=== PATIENT | male | born 1980 | race Caucasian/White ===

== ENCOUNTER 2022-01-08 09:57 | Outpatient (REF) | payer OTHER, SELFPAY ==
[2022-01-08 10:42] LABS: Hemoglobin 14.9 g/dl (14.0-18.0); Mean Corpuscular HGB Conc 33.9 g/dl (31.0-36.0); Mean Corpuscular Hemoglobin 30.7 pg (27.0-33.0); Mean Corpuscular Volume 90.5 fL (80.0-98.0); Mean Platelet Volume 9.9 fL (9.4-12.4); Platelet Count 279 X10*3/uL (160-400); Red Blood Count 4.86 X10*6/uL (4.60-5.80); Red Cell Distribution Width 12.1 % (11.0-16.0); White Blood Count 7.3 X10*3/uL (4.8-10.8)
[2022-01-08 11:02] LABS: Alanine Aminotransferase 17 U/L (0-40); Albumin Level 4.6 g/dL (3.5-5.0); Alkaline Phosphatase 80 U/L (39-117); Aspartate Amino Transferase 17 U/L (5-37); Bilirubin Direct 0.3 mg/dL (0.0-0.5); Bilirubin Total 0.8 mg/dL (0.0-1.0); C Reactive Protein 0.08 mg/dL (< or = 0.50); Lipase 13 U/L (8-78); Total Protein 7.3 g/dL (6.5-8.0)
[2022-01-08 11:25] LABS: Prostate Specific Antigen 0.46 ng/mL (<0.05-4.0)
[2022-01-08 11:28] LABS: Erythrocyte Sedimentation Rate 2 MM/HR (0-15)
== END 2022-01-08 09:58 | disposition home or self-care (01) ==
LOC: HO.10HDL 09:57
PROVIDERS: Visit Provider Internal Medicine Gastroenterology
DX: Z12.5 Encounter for screening for malignant neoplasm of prostate (principal); R10.84 Generalized abdominal pain; R19.4 Change in bowel habit
CPT/HCPCS: 36415; 80076; 83690; 84153; 85027; 85652; 86140

== ENCOUNTER 2022-01-21 07:45 | Day surgery (SDC) | payer OTHER, SELFPAY ==
--- NOTE | 2022-01-20 13:32 | HO.ANESPROP2 ---
Documented by User: Isabel Torres NP 01/20/22 13:33 HPI - Anesthesia Eval Consult details Narrative: 41yo M for Upper Endoscopy and Colonoscopy [facility] Past Medical History Medical History (Updated 01/20/22 @ 11:38 by Anny Hood, RN) Asthma Overactive bladder Surgical History Surgical History (Updated 01/20/22 @ 11:38 by Anny Hood RN) No pertinent past surgical history Social History Social History Patient Tobacco Use Status: Former Tobacco user Use of substances other than those prescribed or required for medical reasons: Yes Substance Use Type Other:: smoking/edibles last 01/20/2022 Substance Use Frequency: Daily Are you DNR?: No Advance Directives: No Advance Directives Information Provided: Yes Meds Allergies Allergy/AdvReac Type Severity Reaction Status Date / Time bee pollen [bee stings] Allergy Unknown Verified 01/21/22 08:36 Home Medications Medication Instructions Recorded Confirmed Last Taken Type No Known Home Meds 01/20/22 01/20/22 Unknown History Exam Exam Date and Time: January 20, 2022 1332 Pertinent Lab Results Pertinent Lab Results: Laboratory Tests 01/08/22 10:00 WBC 7.3 RBC 4.86 Hgb 14.9 Hct 44.0 Plt Count 279 Assessment and Plan Assessment Anesthesia Assessment: Chart Reviewed Documented by User: Usman Marshall MD 01/21/22 16:24 [facility] Past Medical History Medical History (Updated 01/20/22 @ 11:38 by Anny Hood RN) Asthma Overactive bladder Family History Family history of problems with anesthesia: No Surgical History Surgical History (Updated 01/20/22 @ 11:38 by Anny Hood RN) No pertinent past surgical history History of Problems with Anesthesia: No Social History Social History Patient Tobacco Use Status: Former Tobacco user Use of substances other than those prescribed or required for medical reasons: Yes Substance Use Type Other:: smoking/edibles last 01/20/2022 Substance Use Frequency: Daily Are you DNR?: No Advance Directives: No Advance Directives Information Provided: Yes Meds Allergies Allergy/AdvReac Type Severity Reaction Status Date / Time bee pollen [bee stings] Allergy Unknown Verified 01/21/22 08:36 Home Medications Medication Instructions Recorded Confirmed Last Taken Type No Known Home Meds 01/20/22 01/20/22 Unknown History Exam Airway Mallampati Class: III TM Dist: >3cm Neck ROM: Full Loose/Missing/Broken Teeth: Yes (Poor dentiton , chipped teeth ) Heart: S1,S2 Lungs: b/l breath sounds Assessment and Plan Assessment Anesthesia Assessment: Anesthesia Plan Discussed Final Anesthetic Review Family History of Problems with Anesthesia: No History of Problems with Anesthesia: No NPO: Yes ASA Class: II Final Preanesthetic Review: Meds/Allgs Chart Reviewed, Consent Obtained/Reviewed and Anes Risks/Benef Reviewed Patient Risk: Intermediate Procedure Risk: Intermediate Anesthetic Plan Anesthetic Plan: MAC: Disposition: Standard PACU
[2022-01-21 08:22] VITALS: BMI 23.1
--- NOTE | 2022-01-21 08:44 | MHC.SHP ---
Pre-Procedural Eval Section A Date of Service: 01/21/22 The patient is an INPATIENT: No The History & Physical has been completed within 30 days and I have reviewed it.: Yes Section B Chief Complaint: Change in bowel habit,Generalized abdominal pain Allergies: Allergies Allergy/AdvReac Type Severity Reaction Status Date / Time bee pollen [bee stings] Allergy Unknown Verified 01/21/22 08:36 Plan I have reviewed the history and physical and performed a pertinent physical examination on my patient. No changes have occurred unless specified.
[2022-01-21 08:52] VITALS: BP 129/72; PULSE 62; RESP 16; TEMP 36.3; O2SAT 100
[2022-01-21] MEDS: Lactated Ringers 1,000 ML 100 ML IVCONT (08:55)
--- NOTE | 2022-01-21 09:43 | P.BOP_ITS ---
Brief Operative Note Date of Service: 01/21/22 Pre-op diagnosis: abd pain change in bowels hx of polyps Post-op diagnosis: same Surgeon: Ruben Sandoval Anesthesia: MAC Was an Screen Printing Machine Loader Unloader used for this Procedure?: No Estimated blood loss (mL): 5 Pathology: other Condition: stable Disposition: PACU
[2022-01-21 09:46] VITALS: BP 105/61; PULSE 68; RESP 16; TEMP 36.3; O2SAT 96
[2022-01-21 10:01] VITALS: BP 118/78; PULSE 56; RESP 16; TEMP 36.3; O2SAT 98
[2022-01-21 10:16] VITALS: BP 121/76; PULSE 54; RESP 16; TEMP 36.4; O2SAT 99
[2022-01-21 10:31] VITALS: BP 121/76; PULSE 54; RESP 16; TEMP 36.4; O2SAT 99
--- NOTE | 2022-01-21 11:09 | OP_ITS ---
SURGEON: Ruben Sandoval MD INDICATIONS: Abdominal pain and change in bowel habits as well as personal history of colon polyps. PREOPERATIVE DIAGNOSIS: POSTOPERATIVE DIAGNOSIS: PROCEDURE PERFORMED: ESTIMATED BLOOD LOSS: COMPLICATIONS: ANESTHESIA: ASSISTANTS: SPECIMENS: PROCEDURE: Upper endoscopy with biopsy, colonoscopy to the terminal ileum with snare polypectomy. MEDICATIONS: Monitored anesthesia care. DESCRIPTION OF PROCEDURE: Date: 01/21/22 History and physical performed. The risks and benefits of the procedure were explained to the patient. Informed consent was obtained. The patient was placed in the left lateral decubitus position. The Olympus video gastroscope was introduced into the esophagus, stomach, and duodenum. Examination was performed. The scope was removed. He was repositioned for colonoscopy. A digital rectal exam was performed and was found to be normal. The Olympus pediatric videocolonoscope was introduced into the rectum and advanced to the cecum without difficulty. The cecum was identified by transillumination, palpation, and identification of ileocecal valve. Examination was performed. The scope was removed. He tolerated both procedures well and was taken to recovery in stable condition. FINDINGS: 1. Upper endoscopy: a. Esophagus: The esophagus was normal. There was no esophagitis. Biopsies were obtained from the EG junction. b. Stomach: Stomach showed no evidence of masses, ulcers, or polyps. Antral biopsies were obtained to evaluate for H pylori. c. Duodenum: The bulb and second portion were normal. Biopsies were obtained from the second portion. 2. Colonoscopy: The terminal ileum was normal. This was biopsied. In the cecum was an 8 mm polyp on a fold, which was removed with a snare and recovered via suction. The quality of the prep was good. No other polyps were identified. Random biopsies were obtained from the sigmoid. Retroflexed examination was normal. IMPRESSION: 1. Normal upper endoscopy. 2. Colon polyp. RECOMMENDATION: Follow up the biopsy results. MD PENELOPE Mccloud/ORACIO / [id number] MTDD
== END 2022-01-21 11:20 | disposition home or self-care (01) ==
PROVIDERS: Visit Provider Internal Medicine Gastroenterology
PROC: (CPT 43239; principal; 2022-01-21 09:10)
DX: R10.84 Generalized abdominal pain (principal); R19.4 Change in bowel habit; D12.0 Benign neoplasm of cecum; Z86.010 Personal history of colon polyps; J45.909 Unspecified asthma, uncomplicated
CPT/HCPCS: 43239; 45385; 45380; 88305; 88342; J2250

== ENCOUNTER 2022-02-05 09:20 | Outpatient (REF) | payer OTHER, SELFPAY ==
--- NOTE | ~2022-02-05 | US_ITS ---
EXAMINATION: US ABDOMEN COMPLETE CLINICAL INFORMATION: Generalized abdominal pain. COMPARISON: None TECHNIQUE: Real-time imaging of the abdominal viscera. FINDINGS: PANCREAS: Normal. ABDOMINAL AORTA: The proximal, mid, and distal segments are normal in caliber. INFERIOR VENA CAVA: Visualized portions are normal. LIVER: Normal. The liver is normal in size. The liver contour is normal. Parenchymal echogenicity is normal. No focal hepatic lesion. There is no intrahepatic biliary duct dilatation seen. GALLBLADDER: The gallbladder is physiologically distended without evidence of stones, sludge, wall thickening or pericholecystic fluid. There are 3 echogenic nonmobile lesions along the inner gallbladder wall, the largest measuring 0.5 x 0.4 x 0.4 cm. COMMON BILE DUCT: Normal in caliber measuring 0.2 cm in diameter. RIGHT KIDNEY: Normal. No hydronephrosis. No renal calculi or focal parenchymal lesions. The kidney measures 12.3 cm in maximum dimension. LEFT KIDNEY: Normal. No hydronephrosis. No renal calculi or focal parenchymal lesions. The kidney measures 12.1 cm in maximum dimension. SPLEEN: Normal. The spleen measures 11.6 cm in maximum dimension. FREE FLUID: None. US/US abdomen complete IMPRESSION: 1. At least 3 gallbladder polyps. No echogenic stones or wall thickening. 2. The rest of the abdominal ultrasound is unremarkable.
== END 2022-02-05 09:21 | disposition home or self-care (01) ==
LOC: HO.US 09:20
PROVIDERS: Visit Provider Internal Medicine Gastroenterology
DX: R10.84 Generalized abdominal pain (principal)
CPT/HCPCS: 76700

== ENCOUNTER → 2022-03-05 10:23 | Outpatient (REF) | payer OTHER, SELFPAY ==
--- NOTE | ~2022-03-05 | NM_ITS ---
EXAMINATION: BILIARY TRACT IMAGING STUDY WITH CCK CLINICAL INFORMATION: Generalized abdominal pain.. COMPARISON: No previous biliary scan is available for comparison. Abdominal ultrasound dated 02/05/2022 is available for comparison.. TECHNIQUE: Serial gamma scintillation camera images were obtained over the abdomen for a total observation period of 92 minutes following the intravenous administration of 5.0 mCi Tc-99m Mebrofenin. FINDINGS: There is good concentration of activity in the liver by 5 minutes post injection. Biliary activity is visualized by 20 minutes. The gallbladder is well visualized by 25 minutes. Small bowel is well visualized by 70 minutes. At 60 minutes post radiopharmaceutical injection, a 30-minute infusion of 2.0 micrograms Sincalide was then begun and an additional 30 minutes of images were obtained. There is good emptying of the gallbladder. By the end of the study there is good clearance of activity from the liver and visualization of diffuse small bowel activity. The calculated gallbladder ejection fraction is 92% (normal gallbladder ejection fraction is greater than 35%). NM/NM hepatobiliary w pharm IMPRESSION: Visualization of the gallbladder is evidence of a patent cystic duct and strong evidence against the diagnosis of acute cholecystitis. The common bile duct is patent. Gallbladder emptying and ejection fraction are normal. Liver function appears normal.
== END ==
LOC: HO.NUCMED 10:23
PROVIDERS: Visit Provider Internal Medicine Gastroenterology
DX: R10.84 Generalized abdominal pain (principal)
CPT/HCPCS: 78227; A9537; J2805